=== PATIENT | female | born 1990 | race Two or more races ===

== ENCOUNTER → 2020-06-10 14:48 | Outpatient (BNVA) | payer OTHER, SELFPAY | PROVIDERS: PCP Internal Medicine; Visit Provider Advanced Practice Midwife ==

== ENCOUNTER → 2020-06-17 13:31 | Outpatient (BNVA) | payer OTHER, SELFPAY | PROVIDERS: Visit Provider Advanced Practice Midwife | DX: O21.9 Vomiting of pregnancy, unspecified (principal) | CPT/HCPCS: 81003 ==

== ENCOUNTER → 2020-07-08 14:14 | Outpatient (BNVA) | payer OTHER, SELFPAY | PROVIDERS: Visit Provider Advanced Practice Midwife | CPT/HCPCS: 99212 ==

== ENCOUNTER 2020-07-09 16:43 | Outpatient (REF) | payer OTHER, SELFPAY | END 2020-07-09 16:44 | disposition home or self-care (01) | LOC: HO.LAB 16:43 | PROVIDERS: Visit Provider Advanced Practice Midwife | DX: Z13.89 Encounter for screening for other disorder (principal) ==

== ENCOUNTER 2020-07-12 14:56 | Outpatient (REF) | payer OTHER, SELFPAY ==
[2020-07-13 09:07] LABS: BV Int Neg Control Negative (Negative); BV Int Pos Control Positive (Positive)
== END 2020-07-12 14:57 | disposition home or self-care (01) ==
LOC: HO.LAB 14:56
PROVIDERS: Visit Provider Advanced Practice Midwife
DX: Z34.90 Encounter for supervision of normal pregnancy, unspecified, unspecified trimester (principal); Z20.2 Contact with and (suspected) exposure to infections with a predominantly sexual mode of transmission
CPT/HCPCS: 81003; 87480; 87491; 87510; 87591; 87660; 99212

== ENCOUNTER 2020-07-16 10:06 | Outpatient (REF) | payer OTHER, SELFPAY ==
--- NOTE | ~2020-07-16 | US_ITS ---
EXAMINATION: OBSTETRICAL ULTRASOUND, FIRST TRIMESTER HISTORY: 29-year-old at 13.4 weeks of gestation NT screening COMPARISON: None in this TECHNIQUE: Real time transabdominal imaging with color and M-mode Doppler. FINDINGS: A single, live IUP CRL of 70.7 mm c/w 13.2wks is noted. Heart Rate: 152 beats per minute. Normal yolk sac seen. NT was 1.32.mm. NB Present The embryo appears sonographically wnl for this GA. Both maternal ovaries are seen and appear normal. GESTATIONAL AGE: 1. Established GA: 13.4 wks 2. GA from [facility]: 13.2 wks ESTIMATED DATE OF DELIVERY: 1. Established LIEN: 01/17/2021 2. LIEN from A: 01/19/2021 US/US OB 1T nuc measure IMPRESSION: 1. A single live IUP 2. Size equals dates 3. NT of 1.32 mm MFM Consultation: I reviewed the ultrasound findings along with significance of NT measurement. The NT of less than 3mm is generally reassuring. However, the sensitivity for T21 detection is only 60%. I reviewed the availability of serum aneuploidy screening which includes cell-free DNA and placental protein based tests. I discussed the sensitivity, false-positive rate, and other limitations associated with each test. I also reviewed the availability of invasive diagnostic tests that are associated small but definite risk of miscarriage. We also reviewed the differences between screening tests and diagnostic tests. After our discussion, she opted for the First trimester screening that is based on cell-free DNA or non-invasive testing (NIPT). The result will be faxed to your office in approximately 7 days. A follow up at 18 weeks for survey has been scheduled. Thank you very much for this referral. Total time 20 minutes. The time spent was devoted to counseling the patient about the disease and diagnosis, coordinating care including reviewing her records, pertinent lab data and studies, as well as discussing diagnostic evaluation and workup, plan therapeutic interventions and future disposition of care. This includes any additional research needed to obtain further information in formulating the plan of care of this patient. This note was generated with a voice recognition program. Please excuse any errors which may have been overlooked during my review of this note. Sometimes these errors may affect the content or meaning of a given sentence.
[2020-07-16 12:12] LABS: MANUAL DIFF FLAG NO
[2020-07-16 12:19] LABS: Basophils Percent Auto 0.2 % (0-2); Eosinophils Absolute Auto 0.1 X10*3/uL (0.0-0.4); Eosinophils Percent Auto 1.6 % (0-4); Hematocrit 36.7 % (37-47); Hemoglobin 11.9 g/dl (12.0-16.0); Imm Gran Abs Auto 0.04 X10*3/uL (0.00-0.03); Imm Gran Pct Auto 0.4 % (0.0-0.4); Lymphocytes Absolute Auto 1.6 X10*3/uL (1.2-4.9); Lymphocytes Percent Auto 17.8 % (20-40); Mean Corpuscular HGB Conc 32.4 g/dl (31.0-35.0); Mean Corpuscular Hemoglobin 29.2 pg (27.0-33.0); Mean Corpuscular Volume 90.2 fL (80-98); Mean Platelet Volume 10.8 fL (9.4-12.3); Monocytes Absolute Auto 0.6 X10*3/uL (0.1-1.2); Monocytes Percent Auto 6.9 % (2-11); Neutrophils Absolute Auto 6.6 X10*3/uL (2.0-8.3); Neutrophils Percent Auto 73.1 % (45-73); Platelet Count 189 X10*3/uL (160-400); Red Blood Count 4.07 X10*6/uL (4.20-5.50); Red Cell Distribution Width 12.2 % (11.0-16.0)
[2020-07-16 13:09] LABS: Amphetamine Screen Urine Not Detected (Not Detect); Barbiturates, Urine Not Detected (Not Detect); Benzodiazepines Screen Urine Not Detected (Not Detect); Cannabinoid Screen Urine Not Detected (Not Detect); Cocaine Screen Urine Not Detected (Not Detect); Opiate Screen Urine Not Detected (Not Detect); Phencyclidine Screen Urine Not Detected (Not Detect)
[2020-07-16 13:09] LABS: Syphilis Screen Nonreactive (Nonreactive)
[2020-07-17 08:31] LABS: Rubella IgG Antibody <0.90 Index
[2020-07-17 22:33] LABS: HIV AB/AG Nonreactive (Nonreactive)
[2020-07-19 08:24] LABS: HBsAGNum1 0.17 S/CO (0.00-0.99); HIV Num 1 0.07 S/CO (0.00-0.99); Hepatitis B Surface Antigen Negative (Negative); ~HepC Num1 0.09 S/CO (0.00-0.79); ~Hepatitis C Antibody Nonreactive (Nonreactive)
== END 2020-07-16 10:07 | disposition home or self-care (01) ==
LOC: HO.US 10:06
PROVIDERS: Visit Provider Advanced Practice Midwife
DX: Z34.90 Encounter for supervision of normal pregnancy, unspecified, unspecified trimester (principal); Z36.82 Encounter for antenatal screening for nuchal translucency
CPT/HCPCS: 76813; 80307; 85025; 86762; 86780; 86787; 86803; 86850; 86900; 86901; 87086; 87340; 87389

== ENCOUNTER → 2020-08-10 13:25 | Outpatient (BNVA) | payer OTHER, SELFPAY | PROVIDERS: Visit Provider Advanced Practice Midwife | DX: Z36.3 Encounter for antenatal screening for malformations (principal); Z34.90 Encounter for supervision of normal pregnancy, unspecified, unspecified trimester; Z3A.16 16 weeks gestation of pregnancy | CPT/HCPCS: 81003; 99212 ==

== ENCOUNTER 2020-09-03 13:10 | Outpatient (REF) | payer OTHER, SELFPAY ==
--- NOTE | ~2020-09-03 | US_ITS ---
EXAMINATION: US OBSTETRICAL CLINICAL INFORMATION: 30-year-old at 20.4 weeks of gestation Screening for anomaly COMPARISON: 07/16/2020 TECHNIQUE: Real-time transabdominal ultrasound was performed using C1-5 megahertz transducer. FINDINGS: A single, active, fetus is seen in cephalic presentation. The placenta is anterior without previa, and the amniotic fluid volume is wnl. MEASUREMENTS: 1. Biparietal Diameter: 4.5 cm; 19.4 wks 2. Occipital Frontal Diameter: 6.1 cm 3. Head Circumference: 17.0 cm; 19.5 wks 4. Abdominal Circumference: 14.2 cm; 19.4 wks 5. Femur Length: 3.2 cm; 20.1 wks 6. Humerus Length: 3.0 cm; 20.0 wks 7. Tibia Length: 3.0 cm; 20.6 wks 8. Ulna Length: 2.9 cm; E.5 wks 9. Lateral ventricle: 0.67 cm 10. Cerebellum: 2.0 cm; 20.3 wks 11. Cisterna Magna: 0.4 cm 12. Nuchal Fold: 3.7 mm 13. Heart Rate: 125 beats per minute Rt ovary: normal Lt ovary: normal Cervical length 3.6 cm on T/A. GESTATIONAL AGE: 1. Established GA: 20.4 wks 2. GA from [facility]: 19.6 wks ESTIMATED DATE OF DELIVERY: 1. Established LIEN: 01/17/2021 2. LIEN from [facility]: 01/22/2021 ANATOMY: The visualized anatomy includes but not limited to: 1. Cranium: Normal 2. Intracranial anatomy: cavum septum pellucidi, lateral ventricles, choroid plexus, cerebellum, posterior fossa, third and fourth ventricles. 3. face: orbits, lip/palate, profile, nasal bone 4. Heart: four-chamber view of the heart, ventricular septum, foramen ovale, pulmonary vein, left and right outflow tracts, three-vessel view, 3 vessel trachea view, aortic and ductal arches, situs.. 5. Diaphragm: Normal 6. Abdominal wall: Normal 7. Cord Insertion: Normal 8. Spine: Cervical, thoracic, lumbar, sacral. 9. Stomach: Normal size and shape 10. Right Kidney: Normal 11. Left Kidney: Normal 12. 3 vessel cord: Normal 13. Upper extremity: Open hands, fifth digit. 14. Lower extremity: Tibia, fibula, bilateral feet. 15. Bladder: Normal 16. Genitalia: Male, patient not aware US/US OB /maternal detail IMPRESSION: 1. Single, living, intrauterine with appropriate biometry. 2. Normal survey DISCUSSION: I reviewed today's ultrasound findings. We discussed the limitations of ultrasound in diagnosing aneuploidy and other congenital abnormalities. I reviewed the differences between screening test and diagnostic test. Amniocentesis was discussed and declined. She was informed that the baseline incidence of congenital abnormalities is approximately 3-5%. Not all these conditions are diagnosable in utero. RECOMMENDATIONS: Follow-up as clinically indicated. Thank you for allowing me to participate in her care. Total time 20 minutes. The time spent was devoted to counseling the patient about the disease and diagnosis, coordinating care including reviewing her records, pertinent lab data and studies, as well as discussing diagnostic evaluation and workup, plan therapeutic interventions and future disposition of care. This includes any additional research needed to obtain further information in formulating the plan of care of this patient. This note was generated with a voice recognition program. Please excuse any errors which may have been overlooked during my review of this note. Sometimes these errors may affect the content or meaning of a given sentence.
== END 2020-09-03 13:11 | disposition home or self-care (01) ==
LOC: HO.US 13:10
PROVIDERS: Visit Provider Advanced Practice Midwife
DX: Z34.92 Encounter for supervision of normal pregnancy, unspecified, second trimester (principal); Z36.3 Encounter for antenatal screening for malformations; Z3A.16 16 weeks gestation of pregnancy
CPT/HCPCS: 76811

== ENCOUNTER 2020-09-07 12:47 | Outpatient (REF) | payer OTHER, SELFPAY ==
[2020-09-08 09:59] LABS: CT PCR NOT DETECTED (Not Detect.); NG PCR NOT DETECTED (Not Detect.)
== END 2020-09-07 12:48 | disposition home or self-care (01) ==
LOC: HO.LAB 12:47
PROVIDERS: Visit Provider Advanced Practice Midwife
DX: Z34.92 Encounter for supervision of normal pregnancy, unspecified, second trimester (principal); Z20.2 Contact with and (suspected) exposure to infections with a predominantly sexual mode of transmission
CPT/HCPCS: 81003; 87491; 87591; 99212

== ENCOUNTER → 2020-10-05 12:57 | Outpatient (BNVA) | payer OTHER, SELFPAY | PROVIDERS: Visit Provider Advanced Practice Midwife | DX: Z34.92 Encounter for supervision of normal pregnancy, unspecified, second trimester (principal); Z3A.24 24 weeks gestation of pregnancy | CPT/HCPCS: 81003; 99212 ==

== ENCOUNTER → 2020-11-02 13:12 | Outpatient (BNVA) | payer OTHER, SELFPAY | PROVIDERS: Visit Provider Advanced Practice Midwife | DX: O26.893 Other specified pregnancy related conditions, third trimester (principal); N89.8 Other specified noninflammatory disorders of vagina; Z3A.28 28 weeks gestation of pregnancy | CPT/HCPCS: 81003; 99212 ==

== ENCOUNTER 2020-11-04 09:12 | Outpatient (REF) | payer OTHER, MEDICAID, SELFPAY ==
[2020-11-04 11:31] LABS: Hematocrit 31.5 % (37-47); Hemoglobin 9.8 g/dl (12.0-16.0); Mean Corpuscular HGB Conc 31.1 g/dl (31.0-35.0); Mean Corpuscular Hemoglobin 25.8 pg (27.0-33.0); Mean Corpuscular Volume 82.9 fL (80-98); Mean Platelet Volume 11.7 fL (9.4-12.3); Platelet Count 168 X10*3/uL (160-400); Red Cell Distribution Width 12.8 % (11.0-16.0); White Blood Count 8.9 X10*3/uL (4.8-10.8)
[2020-11-04 11:53] LABS: Glucose 1 Hour PP 50gm Dose 116 mg/dL (60-140)
[2020-11-05 03:31] LABS: Syphilis Screen Nonreactive (Nonreactive)
== END 2020-11-04 09:13 | disposition home or self-care (01) ==
LOC: HO.LAB 09:12
PROVIDERS: Visit Provider Advanced Practice Midwife
DX: Z34.92 Encounter for supervision of normal pregnancy, unspecified, second trimester (principal)
CPT/HCPCS: 36415; 85027; 86780

== ENCOUNTER → 2020-11-16 14:13 | Outpatient (BNVA) | payer OTHER, MEDICAID, SELFPAY | PROVIDERS: Visit Provider Advanced Practice Midwife | DX: O99.013 Anemia complicating pregnancy, third trimester (principal); Z3A.30 30 weeks gestation of pregnancy | CPT/HCPCS: 81003; 99212 ==

== ENCOUNTER → 2020-12-02 10:54 | Outpatient (BNVA) | payer OTHER, MEDICAID, SELFPAY | PROVIDERS: Visit Provider Advanced Practice Midwife | DX: Z34.83 Encounter for supervision of other normal pregnancy, third trimester (principal); Z3A.33 33 weeks gestation of pregnancy | CPT/HCPCS: 90471; 90715; 99212 ==

== ENCOUNTER 2020-12-17 08:52 | Outpatient (REF) | payer OTHER, MEDICAID, SELFPAY ==
[2020-12-17 16:30] LABS: CT PCR NOT DETECTED (Not Detect.); NG PCR NOT DETECTED (Not Detect.)
[2020-12-18 11:02] LABS: BV Int Neg Control Negative (Negative); BV Int Pos Control Positive (Positive)
== END 2020-12-17 08:53 | disposition home or self-care (01) ==
LOC: HO.LAB 08:52
PROVIDERS: Visit Provider Advanced Practice Midwife
DX: O98.513 Other viral diseases complicating pregnancy, third trimester (principal); B00.9 Herpesviral infection, unspecified; Z3A.33 33 weeks gestation of pregnancy
CPT/HCPCS: 81003; 87081; 87147; 87480; 87491; 87510; 87591; 87660; 99212

== ENCOUNTER → 2020-12-23 09:07 | Outpatient (BNVA) | payer OTHER, MEDICAID, SELFPAY | PROVIDERS: Visit Provider Advanced Practice Midwife | DX: O99.013 Anemia complicating pregnancy, third trimester (principal); D64.9 Anemia, unspecified; Z3A.32 32 weeks gestation of pregnancy | CPT/HCPCS: 99212 ==

== ENCOUNTER → 2020-12-30 08:25 | Outpatient (BNVA) | payer OTHER, MEDICAID, SELFPAY | PROVIDERS: Visit Provider Advanced Practice Midwife | DX: O99.013 Anemia complicating pregnancy, third trimester (principal); O32.9XX0 Maternal care for malpresentation of fetus, unspecified, not applicable or unspecified; Z3A.37 37 weeks gestation of pregnancy | CPT/HCPCS: 99212 ==

== ENCOUNTER 2020-12-30 09:50 | Outpatient (REF) | payer OTHER, MEDICAID, SELFPAY ==
--- NOTE | ~2020-12-30 | US_ITS ---
EXAMINATION: ULTRASOUND OB LIMITED CLINICAL INFORMATION: Check presentation COMPARISON: Previous exams most recent August 2020 TECHNIQUE: Transabdominal limited OB ultrasound FINDINGS: There is a single viable intrauterine fetus in cephalic position. heart rate is 124 bpm. There is an anterior placenta. Amniotic fluid volume is subjectively normal. US/US OB limited IMPRESSION: Single viable intrauterine fetus in cephalic position.
== END 2020-12-30 09:51 | disposition home or self-care (01) ==
LOC: HO.US 09:50
PROVIDERS: Visit Provider Advanced Practice Midwife
DX: O32.9XX0 Maternal care for malpresentation of fetus, unspecified, not applicable or unspecified (principal); O99.019 Anemia complicating pregnancy, unspecified trimester; D64.9 Anemia, unspecified; Z3A.00 Weeks of gestation of pregnancy not specified
CPT/HCPCS: 76815

== ENCOUNTER → 2021-01-06 10:35 | Outpatient (BNVA) | payer OTHER, MEDICAID, SELFPAY | PROVIDERS: Visit Provider Advanced Practice Midwife | DX: O99.013 Anemia complicating pregnancy, third trimester (principal); D64.9 Anemia, unspecified; O26.893 Other specified pregnancy related conditions, third trimester; N89.8 Other specified noninflammatory disorders of vagina; Z86.19 Personal history of other infectious and parasitic diseases; Z3A.38 38 weeks gestation of pregnancy | CPT/HCPCS: 81003; 99212 ==

== ENCOUNTER → 2021-01-13 10:44 | Outpatient (BNVA) | payer OTHER, MEDICAID, SELFPAY | PROVIDERS: Visit Provider Obstetrics & Gynecology | DX: Z34.83 Encounter for supervision of other normal pregnancy, third trimester (principal); Z3A.39 39 weeks gestation of pregnancy | CPT/HCPCS: 99212 ==

== ENCOUNTER → 2021-01-20 11:15 | Outpatient (BNVA) | payer OTHER, MEDICAID, SELFPAY | PROVIDERS: Visit Provider Obstetrics & Gynecology | DX: O48.0 Post-term pregnancy (principal); O98.313 Other infections with a predominantly sexual mode of transmission complicating pregnancy, third trimester; Z86.19 Personal history of other infectious and parasitic diseases; Z3A.40 40 weeks gestation of pregnancy | CPT/HCPCS: 99212 ==